=== PATIENT | female | born 1990 | race Caucasian/White ===

== ENCOUNTER 2021-01-06 06:35 | Day surgery (SDC) | payer OTHER ==
[2021-01-05 08:03] LABS: COVID AG,FIA SOURCE NASOPHARYNGEAL
[~2021-01-06] VITALS: Ht 154.9 cm; Wt 78.0 kg
[~2021-01-06 06:35] MED LIST: SODIUM CHLORIDE 0.9% 1,000 ML IV ONE; SODIUM CHLORIDE 0.9% 1,000 ML ONE
[2021-01-06] MEDS ORDERED: BENZOCAINE 20% 50 MCG/SPRAY 57 GM TP ONE (06:36)
[2021-01-06] MEDS ORDERED: LIDOCAINE 2% 30 ML JELLY TP ONE (06:36)
[2021-01-06] MEDS ORDERED: LIDOCAINE 4% 50 ML SOLUTION TP ONE (06:36)
[2021-01-06] MEDS ORDERED: ALBUTEROL SULFATE 2.5 MG/0.5 ML NEB SOLUTION NEB ONE (06:36)
[2021-01-06] MEDS ORDERED: MIDAZOLAM HCL 2 MG/2 ML VIAL ONE (07:30)
[2021-01-06] MEDS ORDERED: FentaNYL CITRATE PF 100 MCG/2 ML VIAL ONE (07:31)
[2021-01-06] MEDS ORDERED: MethylPREDNISolone SOD SUCC 125 MG/2 ML VIAL ONE (08:44)
[2021-01-06] MEDS ORDERED: MethylPREDNISolone SOD SUCC 125 MG/2 ML VIAL IVP ONE (09:00)
[2021-01-06] MEDS ORDERED: OXYGEN THERAPY IH SCH (20:00)
== END 2021-01-06 10:35 | disposition home or self-care (01) ==
LOC: SURGERY 06:35
PROVIDERS: ATTEND Internal Medicine Critical Care Medicine
DX: J38.4 Edema of larynx (principal)
CPT/HCPCS: 31623; 31624; 71045; 71250; 84703; 87015; 87070; 87101; 87205; 87206; 87220; 87426; 88184; 88185; C9803; J2250; J2930; J3010; J7030; 88108; 88312; J7613; Z7610